=== PATIENT | female | born 1970 | race Caucasian/White ===

== ENCOUNTER → 2016-09-24 | Outpatient (CLI) | payer OTHER ==
[~2016-09-24] MED LIST: ALBUTEROL17 G1 IH; ASACOL400 MG PO; Bactrim,Septra DS 80 PO; CIPRO500 MG PO; FLAGYL500 MG PO; Feosol PO; HYOSCYAMINE0.125 MG PO; PEPCID40 MG PO; PERCOCET 5/31 TABLET PO; PREDNISONE20 MG PO; PRILOSEC40 MG PO; REGLAN10 MG PO; SYNTHROID175 MCG PO; Senokot S,Pericolace PO; VICOPROFEN1 TABLET PO; ZOFRAN ODT4 MG PO; ZOFRAN4 MG PO
== END | disposition home or self-care (01) ==
LOC: NUC 09-10 07:00
DX: K83.4 Spasm of sphincter of Oddi (principal); R10.11 Right upper quadrant pain
CPT/HCPCS: 78227; A9510; J2805

== ENCOUNTER → 2016-11-14 | Outpatient (CLI) | payer OTHER ==
[~2016-11-14] VITALS: Ht 167.6 cm; Wt 99.8 kg
[~2016-11-14] MED LIST changes: +ALLEGRA ALLERG180 MG PO; +DULERA 200 MCG/13 GM IH; +NASACORT10.8 ML BOTH NARES; +SYNTHROID137 MCG PO; +VENTOLIN HFA18 GM IH; +WOMEN'S BIOMUL1 EACH PO
== END | disposition home or self-care (01) ==
LOC: AMB 07:43
DX: R10.11 Right upper quadrant pain (principal); K31.7 Polyp of stomach and duodenum; R11.2 Nausea with vomiting, unspecified; K21.9 Gastro-esophageal reflux disease without esophagitis; J45.909 Unspecified asthma, uncomplicated; Z87.891 Personal history of nicotine dependence; E03.9 Hypothyroidism, unspecified; Z91.030 Bee allergy status; Z91.041 Radiographic dye allergy status
CPT/HCPCS: 88305; 88342 TC; C1726; J0330; J1170; J2250; J2405; J2765; J3010

== ENCOUNTER 2017-04-13 17:56 | Emergency (ER) | payer OTHER ==
[~2017-04-13] VITALS: Ht 167.6 cm; Wt 104.6 kg
[2017-04-13 19:44] LABS: ADD MIUA? YES; BILIRUBIN NEGATIVE; BLOOD NEGATIVE; COLOR YELLOW ((YELLOW)); GLUCOSE (STRIP) NEGATIVE; KETONES 5; LEUKOCYTES NEGATIVE; NITRITE NEGATIVE; PROTEIN (STRIP) NEGATIVE; SPECIFIC GRAVITY 1.013 (1.000-1.030); UROBILINOGEN 0.2 MG/DL (0.2-1.0)
[2017-04-13 19:48] LABS: BACTERIA RARE /HPF; EPITHELIAL CELLS RARE /HPF; MUCUS NONE SEEN /LPF; RED BLOOD CELLS 0-5 /HPF (0-5); WHITE BLOOD CELLS 0-5 /HPF (0-5)
[2017-04-13 19:51] LABS: MCH 29.8 PG (29.0-34.0); MCHC 33.8 G/DL (30.0-36.0); MCV 88.1 FL (83-99); MEAN PLAT.VOLUME 10.8 uM^3 (9.5-12.4); PLATELET COUNT 257 K/uL (156-360); RBC DIS.WIDTH-CV 12.6 % (11.8-14.6); RBC DIS.WIDTH-SD 40.9 % (39-53); RED BLOOD COUNT 4.77 M/uL (3.80-5.20); WHITE BLOOD COUNT 12.6 K/uL (4.1-10.2)
[2017-04-13 19:53] LABS: CHLORIDE 104 mEq/L (99-109); POTASSIUM 4.1 mEq/L (3.7-5.4); SODIUM 138 mEq/L (136-147)
[2017-04-13 19:55] LABS: GLUCOSE 100 mg/dL (70-99)
[2017-04-13 19:56] LABS: ANION GAP 12 MEQ/L (2-14)
[2017-04-13 19:57] LABS: TOTAL BILIRUBIN 0.3 mg/dL (0.0-1.0)
[2017-04-13 19:58] LABS: ALKALINE PHOSPHATASE 78 IU/L (3-129)
[2017-04-13 19:59] LABS: GFR ESTIMATE (CALCULATED) 52 mL/min/
[2017-04-13 20:00] LABS: UREA NITROGEN (BUN) 11 mg/dL (9-23)
[2017-04-13] MEDS ORDERED: NAPROSYN500 MG PO (21:17)
[2017-04-13] MEDS ORDERED: NORCO 5/3251 TABLET PO (21:17)
[2017-04-13] MEDS ORDERED: ZOFRAN ODT4 MG PO (21:17)
[2017-04-13 21:41] VITALS: BP 124/91
[2017-04-13 21:49] LABS: LIPASE 18 U/L (1.0-51.0)
== END 2017-04-13 21:43 | disposition home or self-care (01) ==
LOC: EME 17:56
PROVIDERS: Nurse Practitioner Family
DX: R10.31 Right lower quadrant pain (principal); R11.2 Nausea with vomiting, unspecified; R30.0 Dysuria; K21.9 Gastro-esophageal reflux disease without esophagitis; E03.9 Hypothyroidism, unspecified; J45.909 Unspecified asthma, uncomplicated; Z90.710 Acquired absence of both cervix and uterus; Z91.041 Radiographic dye allergy status; Z87.891 Personal history of nicotine dependence
CPT/HCPCS: 74176; 80053; 81003; 83690; 85027; 99281; 99284; J1885; J2270; J2405; J2765; J7030

== ENCOUNTER → 2017-10-23 | Outpatient (CLI) | payer OTHER ==
[~2017-10-23] VITALS: Ht 167.6 cm; Wt 104.3 kg
[~2017-10-23] MED LIST changes: +AVENTYL,PAMELOR50 MG PO; +NAPROSYN500 MG PO; +NORCO 5/3251 TABLET PO; +SYMBICORT60 INHALAT IH; +SYNTHROID150 MCG PO
== END | disposition home or self-care (01) ==
LOC: AMB 11:53
DX: K91.5 Postcholecystectomy syndrome (principal); K83.4 Spasm of sphincter of Oddi; J45.909 Unspecified asthma, uncomplicated; E03.9 Hypothyroidism, unspecified; K21.9 Gastro-esophageal reflux disease without esophagitis; E66.9 Obesity, unspecified; Z68.37 Body mass index [BMI] 37.0-37.9, adult; Z87.891 Personal history of nicotine dependence
CPT/HCPCS: 74328; 87081; 94640; C1757; C1769; J0131; J0330; J1100; J1170; J1885; J2250; J2405; J2765; J3010